=== PATIENT | male | born 1980 | race Asian ===

== ENCOUNTER 2022-06-04 10:57 | Emergency (ER) | payer BC ==
[~2022-06-04] VITALS: Ht 175.3 cm; Wt 88.2 kg
[2022-06-04 11:14] VITALS: BP 110/65
--- NOTE | 2022-06-04 11:19 | NUR ---
PT AMB TO BED 5.
[2022-06-04] MEDS ORDERED: LIDOCAINE MPF 1% 10 MG/ML VIAL INJ ONE (11:20)
[2022-06-04 11:40] VITALS: BP 144/86
--- NOTE | 2022-06-04 11:40 | NUR ---
41 M PATIENT PRESENTS TO ED WITH LACERATION WOUND ON RIGHT INDEX FINGER. PT STATES SLICED FINGER WHEN COOKING THIS MORNING. DENIES N/V/D; SKIN IS PINK/WARM/DRY; AAOX4 WITH EVEN AND STEADY GAIT; LUNGS CLEAR BL; HR EVEN AND REGULAR; PT DENIES ANY FEVER, CP, SOB, OR COUGH AT THIS TIME; PATIENT STATES PAIN OF 1/10 AT THIS TIME; VSS; PATIENT POSITIONED FOR COMFORT; HOB ELEVATED; BEDRAILS UP X2; BED DOWN. ER MD MADE AWARE OF PT STATUS. HX: MARIO JOHNSON
--- NOTE | 2022-06-04 12:21 | NUR ---
ROBIN BLANCA AT BEDSIDE INSERTING SUTURES TO PATIENT RIGHT INDEX FINGER
[2022-06-04] MEDS ORDERED: BACI-416 TP (12:31)
[2022-06-04] MEDS ORDERED: ACET325C6 PO (12:31)
[2022-06-04] MEDS ORDERED: CEPH-588 PO (12:31)
[2022-06-04] MEDS ORDERED: BACITRACIN OINT 500 UNITS/GM PKT TP ONE (12:35)
--- NOTE | 2022-06-04 13:02 | NUR ---
Patient discharged with v/s stable. Written and verbal after care instructions given and explained. Patient alert, oriented and verbalized understanding of instructions. Ambulatory with steady gait. All questions addressed prior to discharge. ID band removed. Patient advised to follow up with PMD. Rx of BACITRACIN OINTMENT, KEFLEX CAPS, TYLENOL TAB given. Patient educated on indication of medication including possible reaction and side effects. Opportunity to ask questions provided and answered.
== END 2022-06-04 13:02 | disposition home or self-care (01) ==
LOC: MED 10:57
DX: S61.210A Laceration without foreign body of right index finger without damage to nail, initial encounter (principal); E11.9 Type 2 diabetes mellitus without complications; Z79.899 Other long term (current) drug therapy; W26.0XXA Contact with knife, initial encounter; Y93.G3 Activity, cooking and baking; Y92.89 Other specified places as the place of occurrence of the external cause; Y99.8 Other external cause status
CPT/HCPCS: 12001; 90471; 90715; 99283; J2001

== ENCOUNTER 2022-06-06 09:24 | Emergency (ER) | payer BC ==
[~2022-06-06] VITALS: Ht 175.3 cm; Wt 88.9 kg
[~2022-06-06 09:24] MED LIST: ACET325C6 PO; BACI-416 TP; CEPH-588 PO
[2022-06-06 09:34] VITALS: BP 114/70
--- NOTE | 2022-06-06 09:38 | NUR ---
41 Y/O MALE BIB SELF C/O RIGHT INDEX FINGER SUTURE RECHECK. DONE ON 06/04/22, NO SWELLING NO REDNESS NO DISCHARGE NOTED NKA PMH: DENIES
[2022-06-06] MEDS ORDERED: BACITRACIN OINT 500 UNITS/GM PKT TP ONE (11:05)
--- NOTE | 2022-06-06 11:05 | NUR ---
r index finger irrigated.
--- NOTE | 2022-06-06 11:09 | NUR ---
WOUND TO R INDEX FINGER DRESSED WITH BANDAID
--- NOTE | 2022-06-06 11:31 | NUR ---
Patient discharged with v/s stable. Written and verbal after care instructions ABOUT LACERATION CARE given and explained. Patient verbalized understanding. Ambulatory with steady gait. All questions addressed prior to discharge. Advised to follow up with PMD.
== END 2022-06-06 11:31 | disposition home or self-care (01) ==
LOC: MED 09:24
DX: S61.210D Laceration without foreign body of right index finger without damage to nail, subsequent encounter (principal); Z48.00 Encounter for change or removal of nonsurgical wound dressing; X58.XXXD Exposure to other specified factors, subsequent encounter
CPT/HCPCS: 99282

== ENCOUNTER 2022-06-11 10:17 | Emergency (ER) | payer BC ==
[~2022-06-11] VITALS: Ht 175.3 cm; Wt 86.2 kg
[2022-06-11 10:25] VITALS: BP 119/76
--- NOTE | 2022-06-11 10:28 | NUR ---
PT AMBULATED TO LOBBY
[2022-06-11] MEDS ORDERED: BACITRACIN OINT 500 UNITS/GM PKT TP ONE (11:19)
[2022-06-11] MEDS ORDERED: BACITRACIN OINT 500 UNITS/GM PKT TP SCH (11:25)
--- NOTE | 2022-06-11 11:27 | NUR ---
Patient discharged with v/s stable. Written and verbal after care instructions given and explained for Suture Removal, Care After. Patient verbalized understanding. Ambulatory with steady gait. All questions addressed prior to discharge. Advised to follow up with PMD.
== END 2022-06-11 11:27 | disposition home or self-care (01) ==
LOC: MED 10:17
DX: S61.210D Laceration without foreign body of right index finger without damage to nail, subsequent encounter (principal); Z79.899 Other long term (current) drug therapy; X58.XXXD Exposure to other specified factors, subsequent encounter
CPT/HCPCS: 99282